=== PATIENT | female | born 1990 ===

== ENCOUNTER 2022-10-01 10:33 | Inpatient (IN) | payer OTHER ==
[2022-10-01] MEDS ORDERED: LIDOCAINE 0.5% (PF) 5 MG/ML (50 ML SDV) SQ PRN (11:17)
[2022-10-01] MEDS ORDERED: AMPICILLIN 2,000 MG in SODIUM CHLORIDE 0.9% 100 ML IVPB STA (11:17)
[2022-10-01] MEDS ORDERED: PENICILLIN G POTASSIUM 5,000,000 UNIT in DEXTROSE 5% IN WATER 100 ML IVPB STA ×2 (11:28)
[2022-10-01] MEDS ORDERED: OXYTOCIN 30 UNITS/500 ML NS 30 UNIT in SALINE 1 500ML.BAG IV SCH ×2 (11:30→15:45)
[2022-10-01] MEDS: LACTATED RINGERS 1,000 ML IV SCH ×2 (11:49→19:52)
[2022-10-01 11:53] LABS: Basophils % (A) 0 %; Eosinophils # (A) 0.1 k/uL (0-0.7); Eosinophils % (A) 1 %; Lymphocytes # (A) 1.8 k/uL (1.0-4.8); Lymphocytes % (A) 16 %; MCH 27.3 pg (25.0-35.0); MCHC 32.5 g/dL (31.0-37.0); MCV 84.1 fL (80.0-100.0); Mean Platelet Volume 8.4; Monocytes # (A) 0.6 k/uL (0-1.0); Monocytes % (A) 6 %; Neutrophils # (A) 8.4 k/uL (1.3-7.7); Neutrophils % (A) 75 %; Platelet Count 287 k/uL (150-450); RBC 4.04 m/uL (3.80-5.40); RDW 14.1 % (11.5-15.5); WBC 11.1 k/uL (3.8-10.6)
--- NOTE | 2022-10-01 12:59 | P.HPOB ---
History of Present Illness H&P Date: 10/01/22 Chief Complaint: Regular, painful contractions Ms. Maza is a 32 year old at 40 weeks, 0 day with EDC of 10/01/2022 who presents to labor and delivery with regular, painful contractions and is found to be 5 cm, 80% dilate, and -1 station. Membranes are still intact. The is complicated by presumed gestational diabetes, with a 1hr GTT of 145. The patient had unreliable transportation and therefore was unable to complete her 3 hr GTT. The patient was instructed to measure fasting and 2 hour postprandial blood glucose levels. These levels were within normal limits and insulin was not necessary. Obstetric history is significant for 4 full-term, uncomplicated vaginal deliveries. Largest infant weighed 8#9oz. Laboratory data from the include GBS positive, blood type O negative (s/p rhogam), RPR non-reactive, Rubella immune, HBsAG negative, HIV non- reactive, 1 hr GTT positive as above. Past Medical History Past Medical History: No Reported History History of Any Multi-Drug Resistant Organisms: MRSA Date of last positivie culture/infection: 2011 MDRO Source:: bilateral legs Past Surgical History: No Surgical Hx Reported Additional Past Surgical History / Comment(s): Patient has had a D&C. Past Anesthesia/Blood Transfusion Reactions: No Reported Reaction Past Alcohol Use History: None Reported, Occasional - Past Family History Mother Family Medical History: No Reported History Medications and Allergies Allergies Allergy/AdvReac Type Severity Reaction Status Date / Time No Known Allergies Allergy Verified 06/19/22 07:21 Exam Intake and Output 09/30/22 10/01/22 10/01/22 22:59 06:59 14:59 Other: Weight 95.254 kg Focused exam is performed. Pleasant, healthy-appearing . - OBG Physical Exam Cervix: Cervix 90/-1 Results Result Diagrams: 10/01/22 11:20 Abnormal Lab Results - Last 24 Hours (Table) 10/01/22 Range/Units 11:20 WBC 11.1 H (3.8-10.6) k/uL Hgb 11.0 L (11.4-16.0) gm/dL Neutrophils # 8.4 H (1.3-7.7) k/uL Assessment and Plan Assessment: 32 y/o at 40 weeks, 0 days presenting in labor Plan: - Admit, NPO, mIVF, epidural prn, expectant management at this time. GBS positive, will treat with PCN in labor. Time with Patient: Greater than 30
[2022-10-01] MEDS ORDERED: ROPIVACAINE 100 MG, fentaNYL (PF). 200 MCG in SODIUM CHLORIDE 0.9% 76 ML EPIDURAL ONE (13:54)
[2022-10-01] MEDS ORDERED: AMPICILLIN 1,000 MG in SODIUM CHLORIDE 0.9% 50 ML IVPB SCH (15:30)
[2022-10-01] MEDS ORDERED: diphenhydrAMINE 50 MG CAP PO PRN (15:36)
[2022-10-01] MEDS ORDERED: diphenhydrAMINE 50 MG/ML 1 ML VIAL IVP PRN ×2 (15:36)
[2022-10-01] MEDS ORDERED: LANOLIN CREAM 5 GM TUBE TOPICAL PRN (15:36)
[2022-10-01] MEDS ORDERED: diphenhydrAMINE 25 MG CAP PO PRN (15:36)
[2022-10-01] MEDS ORDERED: ACETAMINOPHEN TAB 325 MG TAB PO PRN (15:36)
[2022-10-01] MEDS ORDERED: HYDROCORTISONE 2.5% RECTAL CREAM 30 GM TUBE RECTAL PRN (15:36)
[2022-10-01] MEDS ORDERED: SIMETHICONE 80 MG CHEWABLE PO PRN (15:36)
[2022-10-01] MEDS ORDERED: HYDROcodone/APAP 5-325MG 1 EACH TAB PO PRN (15:36)
[2022-10-01] MEDS ORDERED: ZOLPIDEM 5 MG TAB PO PRN (15:36)
[2022-10-01] MEDS ORDERED: BENZOCAINE/MENTHOL SPRAY 1 GM/SPRAY AEROSOL TOPICAL PRN (15:36)
[2022-10-01] MEDS ORDERED: Rhogam IMMUNE GLOBULIN 1,500 UNIT/1 ML IM ONE (15:36)
[2022-10-01] MEDS ORDERED: PENICILLIN G POTASSIUM 2,500,000 UNIT in DEXTROSE 5% IN WATER 100 ML IVPB SCH ×2 (16:00)
--- NOTE | 2022-10-01 17:20 | P.PROBDLV ---
Vaginal Delivery Note - . Vaginal Delivery Note: FINDINGS: VMI, Apgars 9/9, weight 3700 grams PROCEDURE: Patient was a 32 y/o who presented to labor and delivery in labor. Patient requested epidural anesthesia, which was administered by Dr. Garcia. AROM was undertaken at 1506 for clear fluid. Patient was complete and pushing. Head delivered without difficulty followed by shoulders and body over intact perineum. Infant placed on maternal abdomen and bulb suctioned. Cord was clamped and cut. Cord blood gases obtained. Placenta delivered whole with gentle cord traction. Oxytocin was started to facilitate uterine tone. Uterine fundus firm and bleeding minimal upon fundal massage. Perineal inspection revealed intact perineum. Patient stable .
[2022-10-01] MEDS: SENNOSIDES-DOCUSATE SODIUM 1 EACH TAB PO SCH (20:00)
[2022-10-02 07:53] LABS: Basophils % (A) 0 %; Eosinophils # (A) 0.2 k/uL (0-0.7); Eosinophils % (A) 2 %; HCT 30.6 % (34.0-46.0); HGB 10.1 gm/dL (11.4-16.0); Hypochromasia Slight; Lymphocytes # (A) 2.9 k/uL (1.0-4.8); Lymphocytes % (A) 24 %; MCH 28.2 pg (25.0-35.0); MCV 85.6 fL (80.0-100.0); Mean Platelet Volume 7.9; Monocytes # (A) 0.8 k/uL (0-1.0); Monocytes % (A) 7 %; Neutrophils # (A) 7.7 k/uL (1.3-7.7); Neutrophils % (A) 65 %; Platelet Count 266 k/uL (150-450); RBC 3.58 m/uL (3.80-5.40); RDW 13.8 % (11.5-15.5); WBC 11.9 k/uL (3.8-10.6)
--- NOTE | 2022-10-02 08:12 | P.PNOBGVD ---
Subjective - Subjective Principal diagnosis: Normal vaginal delivery Interval history: Patient doing well, no acute events overnight. She is ambulating, pain well controlled, tolerating PO without nausea or vomiting, lochia minimal, is going well. Patient denies pain/swelling in legs, CP/SOB, fevers or chills overnight. Patient reports: Reports appetite normal, Reports voiding normally, Reports pain well controlled, Reports ambulating normally [place]: doing well, nursing well Objective - Latest Vital Signs Latest vital signs: Vital Signs Temp Pulse Resp BP Pulse Ox 10/02/22 04:00 89 16 111/72 97 10/02/22 00:00 98.1 F 92 16 108/66 96 10/01/22 20:00 97.9 F 111 H 16 103/55 97 10/01/22 17:51 88 16 114/63 10/01/22 17:15 98.2 F 99 16 100/47 10/01/22 16:45 96 16 122/58 10/01/22 16:30 101 H 16 111/66 10/01/22 16:15 93 16 108/56 10/01/22 16:00 90 16 114/58 10/01/22 15:45 98.0 F 100 16 122/71 10/01/22 11:30 97.8 F 91 16 129/67 98 10/01/22 10:45 97.4 F L 88 16 129/67 98 Intake and Output 10/01/22 10/02/22 10/02/22 22:59 06:59 14:59 Output Total 100 Balance -100 Output: Estimated Blood Loss 100 Other: # Voids 2 2 - Exam Extremities: Present: normal Abdomen: Present: normal appearance, soft Uterus: Present: normal, firm - Labs Labs: Abnormal Lab Results - Last 24 Hours (Table) 10/01/22 10/02/22 Range/Units 11:20 07:15 WBC 11.1 H 11.9 H (3.8-10.6) k/uL RBC 3.58 L (3.80-5.40) m/uL Hgb 11.0 L 10.1 L (11.4-16.0) gm/dL Hct 30.6 L (34.0-46.0) % Neutrophils # 8.4 H (1.3-7.7) k/uL Assessment and Plan Assessment: 32 y/o now PPD#1 s/p at 40 weeks, 0 days. Plan: - Patient meeting all milestones appropriately - Will discharge home tomorrow because infant is on 48 hours hold for GBS
[2022-10-02] MEDS: IBUPROFEN 600 MG TAB PO PRN ×2 (08:18→20:13)
[2022-10-02] MEDS: SENNOSIDES-DOCUSATE SODIUM 1 EACH TAB PO SCH ×2 (08:20→20:13)
[2022-10-03 00:41] VITALS: RESP 16
[2022-10-03] MEDS: SENNOSIDES-DOCUSATE SODIUM 1 EACH TAB PO SCH (07:29)
[2022-10-03 07:32] VITALS: BP 97/60; PULSE 72; TEMP 98.2
--- NOTE | 2022-10-03 09:55 | P.PNOBGVD ---
Subjective - Subjective Principal diagnosis: Normal vaginal delivery Interval history: Patient did well overnight without any acute events. Is ambulating without difficulty, tolerating PO without nausea or vomiting, lochia is minimal, passing flatus. Denies chest pain, shortness of breath, fevers, chills, pain/swelling in the legs. Patient reports: Reports appetite normal, Reports voiding normally, Reports pain well controlled, Reports ambulating normally [place]: doing well, nursing well, other (s/p double phototherapy, s/p circumcision) Objective - Latest Vital Signs Latest vital signs: Vital Signs Temp Pulse Resp BP Pulse Ox 10/03/22 07:30 98.2 F 72 16 97/60 10/03/22 00:00 98.0 F 87 16 103/67 96 10/02/22 16:00 97.6 F 90 18 108/67 98 10/02/22 12:00 98.0 F 83 18 103/63 98 Intake and Output 10/02/22 10/03/22 10/03/22 22:59 06:59 14:59 Other: # Voids 2 2 - Exam Extremities: Present: normal Abdomen: Present: normal appearance, soft Uterus: Present: normal, firm Assessment and Plan Assessment: 32 y/o now PPD#2 s/p at 40 weeks, 0 days. Plan: - Patient meeting all milestones appropriately - Viable male infant at the bedside, doing well, now s/p circumcision and double phototherapy. - Patient interested in Mirena IUD at appointment. Discussed recommendation for 6 weeks of pelvic rest. Dispo: Will discharge home today. Follow up in the office in 6 weeks.
--- NOTE | 2022-10-03 10:03 | P.DS ---
Providers Date of admission: 10/01/22 11:07 Expected date of discharge: 10/03/22 Attending physician: Lanie Ovalle MD Primary care physician: Stated None Hospital Course: The patient was admitted in spontaneous, active labor and quickly progressed to complete dilation. Delivery was uneventful without any lacerations. She met all milestones appropriately and was discharged on day #2 after a 48 hour hold was completed for the male infant because of GBS. Assessment: 32 y/o PPD#2 s/p NVD Patient Condition at Discharge: Good Plan - Discharge Summary Discharge Rx Participant: No New Discharge Prescriptions: New Ibuprofen [Motrin] 800 mg PO Q8H PRN #30 tab PRN Reason: Pain Acetaminophen Tab [Tylenol] 650 mg PO Q6H PRN #30 tab PRN Reason: Pain Discharge Medication List Acetaminophen Tab [Tylenol] 650 mg PO Q6H PRN #30 tab 10/03/22 [Rx] Ibuprofen [Motrin] 800 mg PO Q8H PRN #30 tab 10/03/22 [Rx] Follow up Appointment(s)/Referral(s): Lanie Ovalle MD [STAFF PHYSICIAN] - 6 Weeks Patient Instructions/Handouts: Intrauterine Device (DC), Caring for Your Baby (DC), Normal Growth and Development of Newborns (DC), Vaginal Delivery (DC), Depression (DC), Bleeding (DC), Your Baby (DC), How to Hold and Breastfeed Your Baby (DC), and Nipple Soreness (DC), and Plugged Ducts (DC), How to Tell if Your Baby is Getting Enough Breast Milk (GEN), Expression, Collection and Storage of Breast Milk (GEN) Activity/Diet/Wound Care/Special Instructions: Activity as tolerated. Pelvic rest for 6 weeks.
== END 2022-10-03 15:10 | disposition home or self-care (01) | DRG 807 ==
LOC: FBPOP 10:33 → 4FBP 11:07
PROVIDERS: ADMIT Obstetrics & Gynecology; ATTEND Obstetrics & Gynecology
PROC: 10E0XZZ Delivery of Products of Conception, External Approach (ICD-10-PCS; principal; 2022-10-01)
PROC: 10907ZC Drainage of Amniotic Fluid, Therapeutic from Products of Conception, Via Natural or Artificial Opening (ICD-10-PCS; 2022-10-01)
DX: O24.429 Gestational diabetes mellitus in childbirth, unspecified control (principal); Z37.0 Single live birth; O26.893 Other specified pregnancy related conditions, third trimester; O99.824 Streptococcus B carrier state complicating childbirth; Z3A.40 40 weeks gestation of pregnancy; Z59.82 Transportation insecurity; Z67.41 Type O blood, Rh negative; Z86.14 Personal history of Methicillin resistant Staphylococcus aureus infection; Z28.310 Unvaccinated for COVID-19
CPT/HCPCS: 59025; 85025; 86850; 86870; 86880; 86900; 86901; 86902; 99213